=== PATIENT | female | born 1950 | race Hispanic/Latino ===

== ENCOUNTER 2018-01-31 11:23 | Outpatient (CLI) | payer OTHER, MEDICARE ==
--- NOTE | 2018-01-31 16:09 | Mammography Report ---
BILATERAL DIGITAL SCREENING MAMMOGRAM with CAD : 01/31/18 11:23:00 CLINICAL: Routine screening. COMPARISON:05/09/16 FINDINGS: The breasts are heterogeneously dense, which may obscure small masses.A right focal asymmetry at 6 o'clock correlates with a previously documented cyst. No mass, architectural distortion or suspicious calcifications. IMPRESSION: No mammographic evidence of malignancy. BI-RADS CATEGORY: 2 -- Benign RECOMMENDATION: Routine mammographic screening in one year. COMMENT: Patient follow-up letters are generated by our [employer] application.
== END 2018-01-31 11:24 | disposition home or self-care (01) ==
LOC: SPVWC 11:23
PROVIDERS: ATTEND Family Medicine Adult Medicine
DX: Z12.31 Encounter for screening mammogram for malignant neoplasm of breast (principal)
CPT/HCPCS: 77067